=== PATIENT | female | born 1985 | race Caucasian/White ===

== ENCOUNTER 2016-10-11 10:12 | Emergency (ER) | payer OTHER ==
[~2016-10-11] VITALS: Ht 160 cm; Wt 67.1 kg
[2016-10-11] MEDS ORDERED: TYLE325T5 PO (10:29)
[2016-10-11] MEDS ORDERED: IBUP-1114 PO (10:29)
[2016-10-11] MEDS ORDERED: MAXA5TAB10 PO (10:29)
[2016-10-11] MEDS ORDERED: IBUP80TA PO (11:28)
[2016-10-11] MEDS ORDERED: ZOFR4TAB3 PO (11:28)
[2016-10-11] MEDS ORDERED: REGL10TA6 PO (11:28)
[2016-10-11] MEDS ORDERED: ONDANSETRON 4 MG ORAL DISINTEGRATING TAB (S0181) PO ONE (11:30)
[2016-10-11] MEDS ORDERED: KETOROLAC 30 MG/ML VIAL (J1885) IM ONE (11:30)
[2016-10-11] MEDS ORDERED: METOCLOPRAMIDE 10 MG TAB PO ONE (11:30)
[2016-10-11 11:50] VITALS: BP 140/90
== END 2016-10-11 11:52 | disposition home or self-care (01) ==
LOC: M ED 10:44
DX: R51 Headache (principal); R11.0 Nausea; Z79.3 Long term (current) use of hormonal contraceptives
CPT/HCPCS: 96372; 99282; J1885